=== PATIENT | female | born 1955 | race Caucasian/White ===

== ENCOUNTER → 2020-06-30 | Outpatient (REF) | payer SELFPAY ==
[~2020-06-30] MED LIST: ACET500C OR; ADVA1AER2 IN; ALBUTEROL INH; AMAR1TAB6 OR; CLON1TAB OR; DIOV160T5 OR; GLUC1000 OR; KLOR10TA PO; LASI20TA OR; NEXI1CAP3 OR; POTA20TA OR; SING10TA31 OR; SPIR1CAP INH; TRAM50TA2 PO; TRAZ100T OR; TRIC145T19 OR; TYLENOL ES PO; VARE1TA PO; VENL100T OR; VITA250L PO; VITAMIN D50000 UNT PO; januvia PO; victoza SC
== END ==
LOC: M LABCAHC 09:41
PROVIDERS: ATTEND Pediatrics
DX: Z20.828 Contact with and (suspected) exposure to other viral communicable diseases (principal)

== ENCOUNTER → 2025-02-25 | Outpatient (CLI) | payer MEDICARE, MEDICAID ==
[~2025-02-25] VITALS: Ht 157.5 cm; Wt 67.1 kg
[~2025-02-25] MED LIST changes: +AMLO1TAB25; +ASPI81CH33 PO; +BUDE10.7; +D3 H10002 PO; +EZET10TA21; +FENO145T7; +FURO20TA2; +IRON27TA2 PO; +JANU100T; +LUBI24CA32 PO; +METF10004; +OMEP40CA5; +TRAZ-257; +VALS1TAB66; +VENL150C43; +VENL75CA47; +VENTAER
[2025-02-25 08:07] VITALS: TEMP 97.1
[2025-02-25] MEDS: LIDOCAINE 1% MDV 20 ML VIAL SC SCH (08:56)
[2025-02-25] MEDS: ISOVUE-300 61% 100 ML VIAL IV SCH (08:57)
[2025-02-25] MEDS: SODIUM CHLORIDE 0.9% 1000 ML XX SCH (09:04)
[2025-02-25 10:00] VITALS: BP 169/80; O2SAT 93
== END ==
LOC: M IRPRO 07:41
PROVIDERS: ATTEND Physician Assistant
DX: N20.1 Calculus of ureter (principal)
CPT/HCPCS: 50435; C1729; Q9967

== ENCOUNTER → 2025-03-06 | Outpatient (CLI) | payer MEDICARE, MEDICAID | LOC: M PLAIMG 10:46 | PROVIDERS: ATTEND Internal Medicine Nephrology | DX: N20.0 Calculus of kidney (principal); R91.8 Other nonspecific abnormal finding of lung field ==

== ENCOUNTER 2025-04-02 08:53 | Day surgery (SDC) | payer MEDICARE, MEDICAID ==
[~2025-04-02] VITALS: Ht 157.5 cm; Wt 66.1 kg
[~2025-04-02 08:53] MED LIST changes: -EZET10TA21; +EZET10TA57
[2025-04-02] MEDS ORDERED: LIDOCAINE 2% 100 MG/5 ML SDV (FOR ANES.) As Ordered ONE (08:56)
[2025-04-02] MEDS ORDERED: MIDAZOLAM INJ 2 MG/2 ML VIAL As Ordered ONE (08:56)
[2025-04-02] MEDS ORDERED: ISOVUE-300 61% 100 ML VIAL IV SCH (09:15)
[2025-04-02] MEDS ORDERED: SODIUM CHLORIDE 0.9% 1000 ML XX SCH (09:15)
[2025-04-02] MEDS ORDERED: LIDOCAINE 1% MDV 20 ML VIAL SC SCH (09:15)
[2025-04-02] MEDS: LR 1,000 ML IV SCH (09:23)
[2025-04-02] MEDS ORDERED: ACETAMINOPHEN 1000MG/100ML IV BAG As Ordered ONE (09:43)
[2025-04-02] MEDS ORDERED: ONDANSETRON 4MG 2ML VIAL As Ordered ONE (09:43)
[2025-04-02] MEDS ORDERED: dexAMETHasone 4 MG/ML 1 ML VIAL As Ordered ONE (09:43)
[2025-04-02] MEDS ORDERED: CEPHALEXIN 500 MG CAP PO ONE (10:00)
[2025-04-02] MEDS: ISOVUE-300 61% 100 ML VIAL As Ordered ONE (10:18)
[2025-04-02] MEDS ORDERED: MORPHINE 2 MG/ML 1 ML VIAL IV PRN (10:25)
[2025-04-02] MEDS ORDERED: ONDANSETRON 4MG 2ML VIAL IV PRN (10:25)
[2025-04-02] MEDS ORDERED: TAMS-18 PO (10:46)
[2025-04-02] MEDS ORDERED: OXYB5TAB14 PO (10:46)
[2025-04-02 11:57] VITALS: BP 172/79; TEMP 96.7; O2SAT 92
[2025-04-02] MEDS ORDERED: PERCOCET 5MG/325MG TAB PO PRN (12:20)
== END 2025-04-02 12:00 | disposition home or self-care (01) ==
LOC: M SDC 08:53
PROVIDERS: ATTEND Urology
DX: N13.2 Hydronephrosis with renal and ureteral calculous obstruction (principal); E11.9 Type 2 diabetes mellitus without complications; I10 Essential (primary) hypertension; J44.89 Other specified chronic obstructive pulmonary disease; E78.00 Pure hypercholesterolemia, unspecified; Z79.899 Other long term (current) drug therapy; D50.9 Iron deficiency anemia, unspecified; Z79.82 Long term (current) use of aspirin; Z79.84 Long term (current) use of oral hypoglycemic drugs; K21.9 Gastro-esophageal reflux disease without esophagitis; Z98.84 Bariatric surgery status; Z88.8 Allergy status to other drugs, medicaments and biological substances; Z88.1 Allergy status to other antibiotic agents; Z91.041 Radiographic dye allergy status
CPT/HCPCS: 52356; 76000; 82365; C1769; C1894; C2617; J0131; J0690; J1100; J2250; J2405; J3010; Q9967

== ENCOUNTER → 2025-05-01 | Outpatient (CLI) | payer MEDICARE, MEDICAID ==
[~2025-05-01] MED LIST changes: +OXYB5TAB14 PO; +TAMS-18 PO
== END ==
LOC: M PLAIMG 09:19
PROVIDERS: ATTEND Internal Medicine Critical Care Medicine
DX: R91.8 Other nonspecific abnormal finding of lung field (principal)

== ENCOUNTER → 2025-05-08 | Outpatient (REF) | payer MEDICARE, MEDICAID | LOC: M LAB REF 16:32 | PROVIDERS: ATTEND Internal Medicine Nephrology | DX: N39.0 Urinary tract infection, site not specified (principal) ==